=== PATIENT | male | born 1995 | race Caucasian/White ===

== ENCOUNTER 2018-01-21 13:32 | Emergency (ER) | payer OTHER ==
[~2018-01-21] VITALS: Ht 182.9 cm; Wt 64.5 kg
[2018-01-21 13:33] VITALS: BP 125/80
[2018-01-21] MEDS ORDERED: LIDOCAINE-MPF 1%, 5ML INFIL ONE (14:00)
[2018-01-21] MEDS ORDERED: HYDROcodone/APAP 5/325 TABLET ONE (14:12)
[2018-01-21] MEDS ORDERED: HYDROcodone/APAP 5/325 TABLET PO ONE (14:30)
== END 2018-01-21 14:32 | disposition home or self-care (01) ==
LOC: ED 14:15
DX: K04.6 Periapical abscess with sinus (principal); F17.200 Nicotine dependence, unspecified, uncomplicated
CPT/HCPCS: 41800; 99283